=== PATIENT | male | born 1985 | race Two or more races ===

== ENCOUNTER 2019-02-23 21:19 | Emergency (ER) | payer OTHER ==
[~2019-02-23] VITALS: Ht 180.3 cm; Wt 79.0 kg
[~2019-02-23 21:19] MED LIST: CHLO25CA10 PO; FLO0.4C PO; MAGN400T28 PO; ONDA8TAB6 PO; PARO10TA23 PO
[2019-02-23] MEDS ORDERED: chlordiazePOXIDE 25mg capsule PO ONE (23:15)
[2019-02-23] MEDS ORDERED: CHLO25CA10 PO (23:17)
[2019-02-23 23:36] VITALS: BP 128/65
== END 2019-02-23 23:40 | disposition home or self-care (01) ==
LOC: ER 21:20
DX: F10.239 Alcohol dependence with withdrawal, unspecified (principal); Z90.89 Acquired absence of other organs; Z79.899 Other long term (current) drug therapy; Y90.9 Presence of alcohol in blood, level not specified
CPT/HCPCS: 99283

== ENCOUNTER 2019-07-28 02:18 | Emergency (ER) | payer OTHER ==
[~2019-07-28] VITALS: Ht 182.9 cm; Wt 84.1 kg
--- NOTE | 2019-07-28 02:28 | NUR ---
PT SISTER CAN BE REACHED AT [phone] JANAE SANDERSON
[2019-07-28 02:45] LABS: EOSINOPHILS % (AUTO) 0.8 % (0-6); HEMATOCRIT 42.5 % (42.0-52.0); HEMOGLOBIN 14.3 g/dl (14.0-17.9); LYMPHOCYTES # (AUTO) 2.3 X10'3 (1.1-4.8); LYMPHOCYTES % (AUTO) 51.8 % (21-51); MEAN CORPUSCULAR HEMOGLOBIN 31.5 PG (27.0-31.0); MEAN CORPUSCULAR HGB CONC 33.6 g/dL (33.0-36.5); MEAN CORPUSCULAR VOLUME 93.8 FL (78-98); MEAN PLATELET VOLUME 7.1 FL (7.4-10.4); MONOCYTES # (AUTO) 0.4 X10'3 (0-0.9); NEUTROPHILS # (AUTO) 1.6 X10'3 (1.8-7.7); NEUTROPHILS % (AUTO) 37.4 % (42-75); PLATELET COUNT 259 X10'3 (140-440); RED BLOOD COUNT 4.53 X10'6 (4.70-6.10); RED CELL DISTRIBUTION WIDTH 14.5 % (11.5-14.5); WHITE BLOOD COUNT 4.4 X10'3 (4.5-11.0)
[2019-07-28 02:58] LABS: ALANINE AMINOTRANSFERASE 36 U/L (12-78); ALKALINE PHOSPHATASE 107 IU/L (46-116); ANION GAP 7 (8-16); ASPARTATE AMINO TRANSFERASE 40 U/L (10-37); BILIRUBIN,TOTAL 0.6 MG/DL (0.1-1.0); BLOOD UREA NITROGEN 12 MG/DL (7-18); BUN/CREATININE RATIO 14.3 (5.4-32.0); CALCIUM 8.2 MG/DL (8.5-10.1); CHLORIDE 108 MMOL/L (99-107); CREATININE 0.84 MG/DL (0.60-1.10); GLUCOSE 100 MG/DL (70-104); POTASSIUM 3.8 MMOL/L (3.5-5.1); SODIUM 146 MMOL/L (135-145); TOTAL CARBON DIOXIDE 31.2 MMOL/L (24-32); TOTAL PROTEIN 7.9 G/DL (6.4-8.2); eGFR > 90 ML/MIN
[2019-07-28 03:07] LABS: MAGNESIUM 2.5 MG/DL (1.5-2.4)
[2019-07-28 03:08] LABS: ETHANOL 0.422 GM/DL (0.0-0.010)
[2019-07-28] MEDS ORDERED: normal saline 1000ML IV soln IVB ONE (03:20)
[2019-07-28 03:42] LABS: CLARITY,URINE CLEAR (Clear); COLOR,URINE YELLOW (Yellow); GLUCOSE, URINE NEGATIVE (Neg); KETONES,URINE NEGATIVE (Neg); LEUKOCYTE ESTERASE ,URINE NEGATIVE (Neg); NITRITES, URINE NEGATIVE (Neg); OCCULT BLOOD,URINE NEGATIVE (Neg); PROTEIN,URINE NEGATIVE (Neg); UROBILINOGEN,URINE 0.2 E.U/dL (0.2-1.0)
[2019-07-28 03:51] LABS: UA COLLECTION TYPE CLN CATCH MIDSTREAM
[2019-07-28 03:54] LABS: URINE AMPHETAMINE SCREEN NEGATIVE (Neg); URINE BARBITUATE SCREEN NEGATIVE (Neg); URINE BENZODIAZEPINES SCREEN NEGATIVE (Neg); URINE CANNABINOID SCREEN NEGATIVE (Neg); URINE COCAINE SCREEN NEGATIVE (Neg); URINE METHADONE SCREEN NEGATIVE (Neg); URINE OPIATE SCREEN NEGATIVE (Neg); URINE PHENCYCLIDINE SCREEN NEGATIVE (Neg)
[2019-07-28 04:43] LABS: TOTAL CELLS COUNTED 100
[2019-07-28 04:44] LABS: PLATELET ESTIMATE NORMAL
--- NOTE | 2019-07-28 06:55 | NUR ---
PT AWAKE, AMBULATED TO BR WITH STEADY GATE. PT GROGGY AND TIRED. OLINDA, TECH ESCORTED PT TO BR. VOIDED AND STOOL X1.
[2019-07-28] MEDS ORDERED: ondansetron/PF 4mg/2ml inj IV ONE (09:30)
--- NOTE | 2019-07-28 13:00 | NUR ---
PT'S SISTER CALLED, SAID PT HAS BEEN BINGE DRINKING FOR SOME TIME AND HAS BEEN [facility], A [facility] IN [place] AND OTHERS. WOULD LIKE REHAB FOR HIM
[2019-07-28] MEDS ORDERED: LORazepam 1 MG tablet PO ONE (13:45)
--- NOTE | 2019-07-28 15:36 | NUR ---
PACKET FAXED TO [facility]
--- NOTE | 2019-07-28 16:00 | NUR ---
Patient is awake and alert and in no distress. Patient denies withdrawal symptoms. [facility] but because of the Covid-19 it has been put off. Patient states he was not trying to kill himself. Patient states he has never been suicidal but he just had too much to drink. Continue to monitor.
[2019-07-28] MEDS ORDERED: ESCI10TA61 PO (18:47)
[2019-07-28] MEDS ORDERED: GABA-532 PO (18:47)
[2019-07-28] MEDS ORDERED: PRAZ1CAP5 PO (18:47)
--- NOTE | 2019-07-28 20:46 | NUR ---
Patient is talking with [facility].
[2019-07-28] MEDS ORDERED: prazosin 1mg capsule PO SCH (21:00)
[2019-07-28] MEDS: gabapentin 300mg capsule PO SCH (22:22)
--- NOTE | 2019-07-28 22:29 | NUR ---
Patient reports he is feeling shakey and sweating, possible ETOH withdrawl. I advised Dr. Herman and he will put in med orders.
[2019-07-28] MEDS ORDERED: chlordiazePOXIDE 25mg capsule PO ONE (22:30)
[2019-07-28] MEDS ORDERED: chlordiazePOXIDE 25mg capsule PO PRN (22:30)
[2019-07-29 05:50] VITALS: BP 113/76
[2019-07-29] MEDS ORDERED: ESCITALOPRAM OXALATE 5 MG TABLET PO SCH (08:00)
[2019-07-29] MEDS: gabapentin 300mg capsule PO SCH (08:00)
== END 2019-07-29 08:59 | disposition home or self-care (01) ==
LOC: ER 02:19
DX: R45.851 Suicidal ideations (principal); F10.129 Alcohol abuse with intoxication, unspecified; Z79.899 Other long term (current) drug therapy; Z90.89 Acquired absence of other organs; Y90.8 Blood alcohol level of 240 mg/100 ml or more
CPT/HCPCS: 36415; 80053; 80305; 80320; 81003; 83735; 84443; 85025; 96374; 99285; J2405; J7030

== ENCOUNTER 2019-08-05 23:58 | Emergency (ER) | payer OTHER, MEDICAID ==
[~2019-08-05] VITALS: Ht 185.4 cm; Wt 81.8 kg
[~2019-08-05 23:58] MED LIST changes: -CHLO25CA10 PO; +ESCI10TA61 PO; -FLO0.4C PO; +GABA-532 PO; -MAGN400T28 PO; -ONDA8TAB6 PO; -PARO10TA23 PO; +PRAZ1CAP5 PO
[2019-08-06] MEDS ORDERED: chlordiazePOXIDE 25mg capsule PO ONE (00:30)
[2019-08-06 00:46] LABS: BASOPHILS # (AUTO) 0.1 X10'3 (0-0.2); BASOPHILS % (AUTO) 1.3 % (0-1); EOSINOPHILS % (AUTO) 0.9 % (0-6); HEMOGLOBIN 13.8 g/dl (14.0-17.9); LYMPHOCYTES # (AUTO) 2.6 X10'3 (1.1-4.8); MEAN CORPUSCULAR HEMOGLOBIN 31.9 PG (27.0-31.0); MEAN CORPUSCULAR HGB CONC 33.6 g/dL (33.0-36.5); MEAN PLATELET VOLUME 7.6 FL (7.4-10.4); MONOCYTES # (AUTO) 0.5 X10'3 (0-0.9); MONOCYTES % (AUTO) 9.7 % (2-12); NEUTROPHILS # (AUTO) 1.8 X10'3 (1.8-7.7); NEUTROPHILS % (AUTO) 36.1 % (42-75); PLATELET COUNT 257 X10'3 (140-440); RED BLOOD COUNT 4.32 X10'6 (4.70-6.10); RED CELL DISTRIBUTION WIDTH 15.8 % (11.5-14.5)
[2019-08-06 00:59] LABS: ALANINE AMINOTRANSFERASE 30 U/L (12-78); ALBUMIN 4.1 G/DL (3.4-5.0); ALBUMIN/GLOBULIN RATIO 1.1 (1.1-1.5); ALKALINE PHOSPHATASE 108 IU/L (46-116); ANION GAP 9 (8-16); ASPARTATE AMINO TRANSFERASE 39 U/L (10-37); BILIRUBIN,TOTAL 0.7 MG/DL (0.1-1.0); BLOOD UREA NITROGEN 15 MG/DL (7-18); BUN/CREATININE RATIO 20.5 (5.4-32.0); CALCIUM 8.8 MG/DL (8.5-10.1); CHLORIDE 105 MMOL/L (99-107); CREATININE 0.73 MG/DL (0.60-1.10); GLUCOSE 101 MG/DL (70-104); POTASSIUM 3.8 MMOL/L (3.5-5.1); SODIUM 143 MMOL/L (135-145); TOTAL CARBON DIOXIDE 28.9 MMOL/L (24-32); TOTAL PROTEIN 7.9 G/DL (6.4-8.2); eGFR > 90 ML/MIN
[2019-08-06 01:05] LABS: PLATELET ESTIMATE NORMAL; TOTAL CELLS COUNTED 100
[2019-08-06 01:06] LABS: ETHANOL 0.316 GM/DL (0.0-0.010)
[2019-08-06] MEDS ORDERED: ONDA4TAB6 PO (01:10)
[2019-08-06] MEDS ORDERED: CLON-529 PO (01:10)
[2019-08-06] MEDS ORDERED: CHLO25CA10 PO (01:10)
[2019-08-06 01:16] VITALS: BP 128/90
== END 2019-08-06 01:19 | disposition home or self-care (01) ==
LOC: ER 23:59
DX: F10.230 Alcohol dependence with withdrawal, uncomplicated (principal); Z90.89 Acquired absence of other organs; Z79.899 Other long term (current) drug therapy
CPT/HCPCS: 36415; 80053; 80320; 85025; 99283

== ENCOUNTER 2019-08-12 08:37 | Emergency (ER) | payer MEDICAID, OTHER ==
[~2019-08-12] VITALS: Ht 182.9 cm; Wt 81.8 kg
[~2019-08-12 08:37] MED LIST changes: +CHLO25CA10 PO; +CLON-529 PO; +ONDA4TAB6 PO
[2019-08-12 09:30] LABS: BASOPHILS % (AUTO) 0.9 % (0-1); EOSINOPHILS # (AUTO) 0.1 X10'3 (0-0.9); EOSINOPHILS % (AUTO) 1.5 % (0-6); HEMATOCRIT 42.2 % (42.0-52.0); HEMOGLOBIN 14.1 g/dl (14.0-17.9); LYMPHOCYTES # (AUTO) 2.1 X10'3 (1.1-4.8); MEAN CORPUSCULAR HGB CONC 33.3 g/dL (33.0-36.5); MEAN CORPUSCULAR VOLUME 95.9 FL (78-98); MEAN PLATELET VOLUME 7.9 FL (7.4-10.4); MONOCYTES # (AUTO) 0.4 X10'3 (0-0.9); MONOCYTES % (AUTO) 7.7 % (2-12); NEUTROPHILS # (AUTO) 2.4 X10'3 (1.8-7.7); NEUTROPHILS % (AUTO) 47.9 % (42-75); PLATELET COUNT 249 X10'3 (140-440); RED CELL DISTRIBUTION WIDTH 16.2 % (11.5-14.5)
[2019-08-12 09:46] LABS: URINE AMPHETAMINE SCREEN NEGATIVE (Neg); URINE BARBITUATE SCREEN NEGATIVE (Neg); URINE BENZODIAZEPINES SCREEN POSITIVE (Neg); URINE CANNABINOID SCREEN NEGATIVE (Neg); URINE COCAINE SCREEN NEGATIVE (Neg); URINE METHADONE SCREEN NEGATIVE (Neg); URINE OPIATE SCREEN NEGATIVE (Neg); URINE PHENCYCLIDINE SCREEN NEGATIVE (Neg)
[2019-08-12 09:50] LABS: ALANINE AMINOTRANSFERASE 30 U/L (12-78); ALBUMIN 4.1 G/DL (3.4-5.0); ALBUMIN/GLOBULIN RATIO 1.1 (1.1-1.5); ALKALINE PHOSPHATASE 89 IU/L (46-116); ANION GAP 11 (8-16); ASPARTATE AMINO TRANSFERASE 25 U/L (10-37); BILIRUBIN,TOTAL 0.5 MG/DL (0.1-1.0); BLOOD UREA NITROGEN 16 MG/DL (7-18); BUN/CREATININE RATIO 17.2 (5.4-32.0); CALCIUM 8.6 MG/DL (8.5-10.1); CHLORIDE 107 MMOL/L (99-107); CREATININE 0.93 MG/DL (0.60-1.10); GLUCOSE 91 MG/DL (70-104); POTASSIUM 3.9 MMOL/L (3.5-5.1); SODIUM 146 MMOL/L (135-145); TOTAL CARBON DIOXIDE 28.5 MMOL/L (24-32); TOTAL PROTEIN 7.9 G/DL (6.4-8.2); eGFR > 90 ML/MIN
[2019-08-12 09:55] LABS: ETHANOL 0.335 GM/DL (0.0-0.010)
[2019-08-12] MEDS ORDERED: normal saline 1000ML IV soln IVB ONE (10:00)
[2019-08-12] MEDS ORDERED: LORazepam 1 MG tablet PO ONE (10:00)
--- NOTE | 2019-08-12 10:45 | NUR ---
Ativan held as pt intoxicated and is sleepy, provider Barbara HOFFMAN updated and aware, pt to receive when more awake.
--- NOTE | 2019-08-12 12:38 | NUR ---
Lunch relief for Primary Nurse. Pt is resting with even and unlabored respirations. Pt has a sitter at bedside.
--- NOTE | 2019-08-12 15:23 | NUR ---
Patient transferred to overflow bed 27. Pt. states that he was intoxicated and started cutting on his left forearm. [facility]. Pt. states that he has flashbacks from war in [place].
--- NOTE | 2019-08-12 17:58 | NUR ---
Pt. sleeping on right side. Pt.s girlfriend called, but patient did not wish to talk at this time. Sleeping at present.
--- NOTE | 2019-08-12 18:25 | NUR ---
Patient is sleeping quietly, low fowlers in bed, on his right side.
--- NOTE | 2019-08-12 19:03 | NUR ---
Patient is now awake and eating his dinner. The patient is oriented X4. Patient describes being an alcoholic and drinking two pints of vodka a day on a regular basis. Patient has superficial cuts on his left anterior wrist. Addendum: 08/12/19 at 2051 by CORKY Patient denies any S/I or H/I, or hallucinations. Hx of alcoholism. Patient is cooperative with staff. .
[2019-08-12] MEDS ORDERED: LORazepam 1 MG tablet PO PRN (21:45)
[2019-08-12] MEDS: gabapentin 300mg capsule PO SCH (21:53)
--- NOTE | 2019-08-12 21:55 | NUR ---
Patient is low fowlers position in bed. Mild anxiety, extremely cooperative with staff. Medication compliant. PO Ativan given 1mg for anxiety and to prevent potential ETOH withdrawl. Patient has an existing saline lock in his right forarm. This will be flushed and left in for the short term.
--- NOTE | 2019-08-12 23:39 | NUR ---
Patient is still awake. He is cooperative but not sleepy. This conventional underwriter spoke with YASMIN Gamboa. Nabeel ordered PO.
[2019-08-12] MEDS ORDERED: diphenhydrAMINE 25mg capsule PO ONE (23:40)
--- NOTE | 2019-08-13 06:37 | NUR ---
sleeping no signs of resp distress
--- NOTE | 2019-08-13 07:00 | NUR ---
sleeping no signs of resp distress sleeping on right side
[2019-08-13] MEDS ORDERED: ESCITALOPRAM OXALATE 5 MG TABLET PO SCH (08:00)
[2019-08-13] MEDS: gabapentin 300mg capsule PO SCH (08:21)
--- NOTE | 2019-08-13 08:23 | NUR ---
talked to [facility], being DC'd in restroom brushing teeth
--- NOTE | 2019-08-13 09:02 | NUR ---
Patient is readintg
[2019-08-13 09:41] VITALS: BP 126/83
== END 2019-08-13 09:44 ==
LOC: ER 08:37
DX: S40.812A Abrasion of left upper arm, initial encounter (principal); F32.9 Major depressive disorder, single episode, unspecified; F10.10 Alcohol abuse, uncomplicated; F41.9 Anxiety disorder, unspecified; Z79.899 Other long term (current) drug therapy; X78.9XXA Intentional self-harm by unspecified sharp object, initial encounter; Y93.89 Activity, other specified; Y92.89 Other specified places as the place of occurrence of the external cause; Y99.8 Other external cause status
CPT/HCPCS: 36415; 80053; 80305; 80320; 84443; 85025; 99285; J7030; Q0163; 99283

== ENCOUNTER 2019-08-16 13:56 | Emergency (ER) | payer OTHER, MEDICAID ==
[~2019-08-16] VITALS: Ht 182.9 cm; Wt 65.8 kg
[~2019-08-16 13:56] MED LIST changes: -CHLO25CA10 PO; -CLON-529 PO; -ONDA4TAB6 PO; -PRAZ1CAP5 PO
[2019-08-16 14:01] VITALS: BP 118/64
== END 2019-08-16 15:46 | disposition home or self-care (01) ==
LOC: ER 13:56
DX: F10.239 Alcohol dependence with withdrawal, unspecified (principal); F31.9 Bipolar disorder, unspecified; Z90.89 Acquired absence of other organs; Z79.899 Other long term (current) drug therapy; Y90.9 Presence of alcohol in blood, level not specified
CPT/HCPCS: 99281

== ENCOUNTER → 2019-11-11 | Emergency (ER) | payer MEDICAID, OTHER ==
[~2019-11-11] VITALS: Ht 182.9 cm; Wt 74.2 kg
[2019-11-11 21:44] VITALS: BP 125/85
== END | disposition home or self-care (01) ==
LOC: ER 21:15
DX: F10.20 Alcohol dependence, uncomplicated (principal); Z53.21 Procedure and treatment not carried out due to patient leaving prior to being seen by health care provider; Y90.9 Presence of alcohol in blood, level not specified

== ENCOUNTER 2019-11-12 15:04 | Emergency (ER) | payer OTHER ==
[~2019-11-12] VITALS: Ht 182.9 cm; Wt 79.5 kg
[2019-11-12] MEDS ORDERED: thiamine 100mg/ml 2ml inj. IV ONE (15:35)
[2019-11-12] MEDS ORDERED: metoclopramide 5 mg/ml inj IV ONE (15:35)
[2019-11-12] MEDS ORDERED: normal saline 1000ML IV soln IV ONE (15:35)
[2019-11-12] MEDS ORDERED: pantoprazole IV 80 MG in normal saline 100ml IV soln 100 ML IV ONE (15:35)
[2019-11-12] MEDS ORDERED: folic acid 1mg/0.2ml inj IV ONE (15:35)
[2019-11-12] MEDS ORDERED: pantoprazole 40 MG vial IV ONE (15:40)
[2019-11-12 15:57] VITALS: BP 117/71
[2019-11-12] MEDS ORDERED: piperacillin/tazo 3.375gm/50ml 50 ML IV ONE (16:00)
[2019-11-12 16:03] LABS: BASOPHILS % (AUTO) 0.4 % (0-1); EOSINOPHILS % (AUTO) 0 % (0-6); HEMATOCRIT 40.6 % (42.0-52.0); HEMOGLOBIN 13.4 g/dl (14.0-17.9); LYMPHOCYTES # (AUTO) 0.7 X10'3 (1.1-4.8); LYMPHOCYTES % (AUTO) 11.6 % (21-51); MEAN CORPUSCULAR HEMOGLOBIN 30.8 PG (27.0-31.0); MEAN CORPUSCULAR VOLUME 93.5 FL (78-98); MEAN PLATELET VOLUME 7.5 FL (7.4-10.4); MONOCYTES # (AUTO) 0.4 X10'3 (0-0.9); MONOCYTES % (AUTO) 6.3 % (2-12); NEUTROPHILS # (AUTO) 4.9 X10'3 (1.8-7.7); NEUTROPHILS % (AUTO) 81.7 % (42-75); PLATELET COUNT 223 X10'3 (140-440); RED BLOOD COUNT 4.34 X10'6 (4.70-6.10); RED CELL DISTRIBUTION WIDTH 13.8 % (11.5-14.5)
--- NOTE | 2019-11-12 16:08 | NUR ---
PT OUT TO CT VIA WHEELCHAIR WITH ASSISTED LIVING DIRECTOR
--- NOTE | 2019-11-12 16:14 | NUR ---
PT RETURNS FROM CT
[2019-11-12 16:39] LABS: CLARITY,URINE CLEAR (Clear); COLOR,URINE YELLOW (Yellow); GLUCOSE, URINE NEGATIVE (Neg); KETONES,URINE 15 mg/dl (Neg); LEUKOCYTE ESTERASE ,URINE NEGATIVE (Neg); NITRITES, URINE NEGATIVE (Neg); OCCULT BLOOD,URINE TRACE-INTACT (Neg); PH,URINE 6.5 (4.8-8.0); PROTEIN,URINE 100 mg/dl (Neg)
[2019-11-12 16:44] LABS: UA COLLECTION TYPE URINAL
[2019-11-12 16:47] LABS: ALANINE AMINOTRANSFERASE 33 U/L (12-78); ALBUMIN/GLOBULIN RATIO 1.3 (1.1-1.5); ALKALINE PHOSPHATASE 74 IU/L (46-116); ANION GAP 13 (8-16); ASPARTATE AMINO TRANSFERASE 31 U/L (10-37); BILIRUBIN,TOTAL 0.8 MG/DL (0.1-1.0); BLOOD UREA NITROGEN 15 MG/DL (7-18); CHLORIDE 106 MMOL/L (99-107); CREATININE 0.88 MG/DL (0.60-1.10); GLUCOSE 84 MG/DL (70-104); POTASSIUM 4.1 MMOL/L (3.5-5.1); SODIUM 142 MMOL/L (135-145); TOTAL CARBON DIOXIDE 22.9 MMOL/L (24-32); TOTAL PROTEIN 7.2 G/DL (6.4-8.2); eGFR > 90 ML/MIN
[2019-11-12 16:47] LABS: SQUAMOUS EPITHELIAL CELL,UR FEW /LPF (FEW)
[2019-11-12 16:48] LABS: BACTERIA,URINE FEW /HPF (Neg); MUCUS STRANDS MANY /LPF (Neg); RBC,URINE 0-2 /HPF (0-2); WBC,URINE 0-4 /HPF (0-4)
--- NOTE | 2019-11-12 16:48 | NUR ---
went in room to give pt meds but pt was not in there ,er brittney lord informed pt lft the er.
[2019-11-12] MEDS ORDERED: pantoprazole 40MG/NS 100ML BAG 100 ML IV SCH (16:55)
--- NOTE | 2019-11-12 17:00 | NUR ---
called soledad spoke to camilo notified pt lft er with iv also given the information what pt was wearing .as per braxton they will contact [facility] and will contact us marino grullon notified.
== END 2019-11-12 17:35 | disposition left against medical advice (07) ==
LOC: ER 15:05
DX: K29.21 Alcoholic gastritis with bleeding (principal); K92.2 Gastrointestinal hemorrhage, unspecified; R11.10 Vomiting, unspecified; F41.9 Anxiety disorder, unspecified; F32.9 Major depressive disorder, single episode, unspecified; Z72.89 Other problems related to lifestyle; Z86.69 Personal history of other diseases of the nervous system and sense organs; Z79.899 Other long term (current) drug therapy; Z90.89 Acquired absence of other organs
CPT/HCPCS: 36415; 71045; 74176; 80053; 81001; 84145; 85025; 85610; 86885; 86900; 86901; 93005; 96361; 96374; 96375; 99285; C9113; J2765; J3411; J7030

== ENCOUNTER 2020-01-18 12:47 | Emergency (ER) | payer OTHER ==
[~2020-01-18] VITALS: Ht 182.9 cm; Wt 81.8 kg
[2020-01-18] MEDS ORDERED: carbidoba-levodopa 25-100mg tablet PO SCH (13:10)
[2020-01-18] MEDS ORDERED: carbidoba-levodopa 25-100mg tablet PO ONE (13:10)
[2020-01-18 14:48] VITALS: BP 120/68
== END 2020-01-18 14:50 | disposition home or self-care (01) ==
LOC: ER 12:48
DX: F10.129 Alcohol abuse with intoxication, unspecified (principal); Y90.0 Blood alcohol level of less than 20 mg/100 ml; F41.9 Anxiety disorder, unspecified; F32.9 Major depressive disorder, single episode, unspecified; Z86.69 Personal history of other diseases of the nervous system and sense organs; Z90.89 Acquired absence of other organs; Z79.899 Other long term (current) drug therapy
CPT/HCPCS: 70450; 82948; 99284

== ENCOUNTER 2020-01-28 22:10 | Emergency (ER) | payer OTHER ==
[~2020-01-28] VITALS: Ht 182.9 cm; Wt 81.8 kg
--- NOTE | 2020-01-28 23:22 | NUR ---
He was trying to crawl out of bed. He said he had to have a bm. Walked him to the bathroom, once in the BR he just kept grabbing the urinal. I asked him to sit down on the toilet but he just wouldn't, again grabbing for the urinal. I escorted him back to his bed, put up the side rail. He is just laying there.
--- NOTE | 2020-01-28 23:25 | NUR ---
found him again out of bed. I want to help him because he is so unsteady. He said he cannot pee with me in the room. I said that he is just too unsteady. I offered a male to assist. He said he would just pee the bed. Side rail up.
--- NOTE | 2020-01-29 00:52 | NUR ---
INFORMED ME THAT SHE DID GET AHOLD OF HIS MOTHER AND THAT SHE WILL BE HERE IN ABOUT AN HOUR OR SO.
[2020-01-29 01:35] VITALS: BP 153/87
== END 2020-01-29 01:39 | disposition home or self-care (01) ==
LOC: ER 22:10
DX: F10.129 Alcohol abuse with intoxication, unspecified (principal); F41.9 Anxiety disorder, unspecified; F32.9 Major depressive disorder, single episode, unspecified; Z86.69 Personal history of other diseases of the nervous system and sense organs; Z90.89 Acquired absence of other organs; Z79.899 Other long term (current) drug therapy; Y90.0 Blood alcohol level of less than 20 mg/100 ml
CPT/HCPCS: 82948; 99284

== ENCOUNTER 2020-04-05 11:20 | Emergency (ER) | payer OTHER ==
[~2020-04-05] VITALS: Ht 180.3 cm; Wt 84.1 kg
[2020-04-05 12:43] LABS: BASOPHILS % (AUTO) 0.5 % (0-1); EOSINOPHILS % (AUTO) 1.1 % (0-6); HEMATOCRIT 45.9 % (42.0-52.0); HEMOGLOBIN 15.4 g/dl (14.0-17.9); LYMPHOCYTES # (AUTO) 2.2 X10'3 (1.1-4.8); LYMPHOCYTES % (AUTO) 53.6 % (21-51); MEAN CORPUSCULAR HGB CONC 33.5 g/dL (33.0-36.5); MEAN CORPUSCULAR VOLUME 95.5 FL (78-98); MEAN PLATELET VOLUME 7.5 FL (7.4-10.4); MONOCYTES # (AUTO) 0.1 X10'3 (0-0.9); MONOCYTES % (AUTO) 3.7 % (2-12); NEUTROPHILS # (AUTO) 1.7 X10'3 (1.8-7.7); NEUTROPHILS % (AUTO) 41.1 % (42-75); PLATELET COUNT 208 X10'3 (140-440); RED BLOOD COUNT 4.81 X10'6 (4.70-6.10); RED CELL DISTRIBUTION WIDTH 13.5 % (11.5-14.5)
[2020-04-05 12:56] LABS: ALANINE AMINOTRANSFERASE 42 U/L (12-78); ALBUMIN 4.1 G/DL (3.4-5.0); ALBUMIN/GLOBULIN RATIO 1.1 (1.1-1.5); ALKALINE PHOSPHATASE 88 IU/L (46-116); ANION GAP 14 (8-16); ASPARTATE AMINO TRANSFERASE 33 U/L (10-37); BILIRUBIN,TOTAL 0.6 MG/DL (0.1-1.0); BLOOD UREA NITROGEN 15 MG/DL (7-18); CALCIUM 8.3 MG/DL (8.5-10.1); CHLORIDE 105 MMOL/L (99-107); CREATININE 0.88 MG/DL (0.60-1.10); GLUCOSE 87 MG/DL (70-104); POTASSIUM 3.9 MMOL/L (3.5-5.1); SODIUM 146 MMOL/L (135-145); TOTAL CARBON DIOXIDE 27.3 MMOL/L (24-32); eGFR > 90 ML/MIN
[2020-04-05 13:21] LABS: TOTAL CELLS COUNTED 100
[2020-04-05 13:22] LABS: PLATELET ESTIMATE NORMAL
[2020-04-05 13:23] LABS: ELLIPTOCYTES FEW; SMUDGE CELLS FEW; STOMATOCYTES FEW; TEAR DROP CELLS FEW
--- NOTE | 2020-04-05 13:40 | NUR ---
PO CHALLENGE PERFORMED. OUTCME NORMAL, NO N/V OR DIFFICULTY SWALLOWING. PA WU INFORMED
[2020-04-05] MEDS ORDERED: GABA300C PO (13:50)
[2020-04-05 13:59] VITALS: BP 117/84
== END 2020-04-05 14:01 | disposition home or self-care (01) ==
LOC: ER 11:21
DX: F10.129 Alcohol abuse with intoxication, unspecified (principal); F41.9 Anxiety disorder, unspecified; F32.9 Major depressive disorder, single episode, unspecified; Z86.69 Personal history of other diseases of the nervous system and sense organs; Z90.89 Acquired absence of other organs; Z72.89 Other problems related to lifestyle; Z79.899 Other long term (current) drug therapy; Y90.9 Presence of alcohol in blood, level not specified
CPT/HCPCS: 80053; 85007; 85025; 99283

== ENCOUNTER 2020-06-06 01:10 | Emergency (ER) | payer OTHER ==
[~2020-06-06] VITALS: Ht 182.9 cm; Wt 79.0 kg
[~2020-06-06 01:10] MED LIST changes: +ESCI-8 PO; -ESCI10TA61 PO; +GABA300C PO
[2020-06-06] MEDS ORDERED: normal saline 1000ML IV soln IVB ONE (01:20)
[2020-06-06 01:46] LABS: BASOPHILS % (AUTO) 0.6 % (0-1); EOSINOPHILS % (AUTO) 0.7 % (0-6); HEMATOCRIT 39.1 % (42.0-52.0); HEMOGLOBIN 13.4 g/dl (14.0-17.9); LYMPHOCYTES # (AUTO) 1.8 X10'3 (1.1-4.8); LYMPHOCYTES % (AUTO) 56.5 % (21-51); MEAN CORPUSCULAR HEMOGLOBIN 32.9 PG (27.0-31.0); MEAN CORPUSCULAR HGB CONC 34.3 g/dL (33.0-36.5); MEAN CORPUSCULAR VOLUME 96.1 FL (78-98); MEAN PLATELET VOLUME 8.1 FL (7.4-10.4); MONOCYTES # (AUTO) 0.3 X10'3 (0-0.9); MONOCYTES % (AUTO) 8.1 % (2-12); NEUTROPHILS # (AUTO) 1.1 X10'3 (1.8-7.7); NEUTROPHILS % (AUTO) 34.1 % (42-75); PLATELET COUNT 145 X10'3 (140-440); RED BLOOD COUNT 4.06 X10'6 (4.70-6.10); RED CELL DISTRIBUTION WIDTH 15.7 % (11.5-14.5); WHITE BLOOD COUNT 3.2 X10'3 (4.5-11.0)
[2020-06-06 01:47] LABS: ALANINE AMINOTRANSFERASE 50 U/L (12-78); ALBUMIN 3.9 G/DL (3.4-5.0); ALKALINE PHOSPHATASE 105 IU/L (46-116); ANION GAP 5 (8-16); ASPARTATE AMINO TRANSFERASE 87 U/L (10-37); BILIRUBIN,TOTAL 0.7 MG/DL (0.1-1.0); BLOOD UREA NITROGEN 11 MG/DL (7-18); BUN/CREATININE RATIO 13.9 (5.4-32.0); CALCIUM 8.2 MG/DL (8.5-10.1); CHLORIDE 105 MMOL/L (99-107); CREATININE 0.79 MG/DL (0.60-1.10); GLUCOSE 106 MG/DL (70-104); MAGNESIUM 2.3 MG/DL (1.5-2.4); POTASSIUM 3.3 MMOL/L (3.5-5.1); SODIUM 143 MMOL/L (135-145); TOTAL CARBON DIOXIDE 32.7 MMOL/L (24-32); TOTAL PROTEIN 7.7 G/DL (6.4-8.2); eGFR > 90 ML/MIN
[2020-06-06 01:52] LABS: ETHANOL 0.558 GM/DL (0.0-0.010)
[2020-06-06 02:34] VITALS: BP 104/65
[2020-06-06] MEDS ORDERED: LORA-269 PO (05:59)
--- NOTE | 2020-06-06 06:28 | NUR ---
HOME MEDS RETURNED TO PATIENT
== END 2020-06-06 06:41 | disposition home or self-care (01) ==
LOC: ER 01:11
DX: S09.90XA Unspecified injury of head, initial encounter (principal); F10.129 Alcohol abuse with intoxication, unspecified; E87.6 Hypokalemia; F41.9 Anxiety disorder, unspecified; F32.9 Major depressive disorder, single episode, unspecified; Z86.69 Personal history of other diseases of the nervous system and sense organs; Z90.89 Acquired absence of other organs; Z72.89 Other problems related to lifestyle; Z79.899 Other long term (current) drug therapy; W19.XXXA Unspecified fall, initial encounter; Y93.89 Activity, other specified; Y92.89 Other specified places as the place of occurrence of the external cause; Y99.8 Other external cause status; Y90.0 Blood alcohol level of less than 20 mg/100 ml
CPT/HCPCS: 70450; 71045; 80053; 80320; 83735; 85025; 99285; J7030; 96360

== ENCOUNTER 2020-11-30 18:58 | Inpatient (IN) | payer OTHER ==
[~2020-11-30] VITALS: Ht 177.8 cm; Wt 75.0 kg
[~2020-11-30 18:58] MED LIST changes: +LORA-269 PO
[2020-11-30] MEDS ORDERED: normal saline 1000ML IV soln IV ONE (19:05)
[2020-11-30] MEDS ORDERED: folic acid 1mg/0.2ml inj IV ONE (19:05)
[2020-11-30] MEDS ORDERED: thiamine 100mg/ml 2ml inj. IV ONE (19:05)
[2020-11-30 19:22] LABS: BASOPHILS % (AUTO) 0.3 % (0-1); EOSINOPHILS % (AUTO) 0 % (0-6); HEMOGLOBIN 14.8 g/dl (14.0-17.9); LYMPHOCYTES # (AUTO) 1.7 X10'3 (1.1-4.8); LYMPHOCYTES % (AUTO) 22.4 % (21-51); MEAN CORPUSCULAR HEMOGLOBIN 31.4 PG (27.0-31.0); MEAN CORPUSCULAR HGB CONC 33.6 g/dL (33.0-36.5); MEAN CORPUSCULAR VOLUME 93.7 FL (78-98); MEAN PLATELET VOLUME 7.7 FL (7.4-10.4); MONOCYTES # (AUTO) 0.5 X10'3 (0-0.9); MONOCYTES % (AUTO) 6.4 % (2-12); NEUTROPHILS # (AUTO) 5.3 X10'3 (1.8-7.7); NEUTROPHILS % (AUTO) 70.9 % (42-75); PLATELET COUNT 246 X10'3 (140-440); RED CELL DISTRIBUTION WIDTH 12.6 % (11.5-14.5); WHITE BLOOD COUNT 7.5 X10'3 (4.5-11.0)
[2020-11-30 19:37] LABS: ALANINE AMINOTRANSFERASE 101 U/L (12-78); ALBUMIN 4.3 G/DL (3.4-5.0); ALBUMIN/GLOBULIN RATIO 1.1 (1.1-1.5); ALKALINE PHOSPHATASE 91 IU/L (46-116); ANION GAP 9 (8-16); ASPARTATE AMINO TRANSFERASE 91 U/L (10-37); BILIRUBIN,TOTAL 1.6 MG/DL (0.1-1.0); BLOOD UREA NITROGEN 14 MG/DL (7-18); BUN/CREATININE RATIO 17.9 (5.4-32.0); CALCIUM 8.5 MG/DL (8.5-10.1); CHLORIDE 104 MMOL/L (99-107); CREATININE 0.78 MG/DL (0.60-1.10); GLUCOSE 113 MG/DL (70-104); POTASSIUM 3.7 MMOL/L (3.5-5.1); SODIUM 140 MMOL/L (135-145); TOTAL CARBON DIOXIDE 27.1 MMOL/L (24-32); TOTAL PROTEIN 8.2 G/DL (6.4-8.2); eGFR > 90 ML/MIN
[2020-11-30 19:38] LABS: MAGNESIUM 2.3 MG/DL (1.5-2.4)
[2020-11-30 19:51] LABS: ETHANOL 0.374 GM/DL (0.0-0.010); LIPASE 1938 U/L (73-393)
[2020-11-30] MEDS ORDERED: famotidine/PF 10 mg/ml inj IV ONE (20:10)
[2020-11-30] MEDS ORDERED: ketorolac trometh. 30mg/ml inj. IV ONE (20:10)
[2020-11-30] MEDS ORDERED: ondansetron/PF 4mg/2ml inj IV ONE (21:10)
[2020-11-30 21:31] LABS: CLARITY,URINE CLEAR (Clear); COLOR,URINE YELLOW (Yellow); GLUCOSE, URINE NEGATIVE (Neg); KETONES,URINE NEGATIVE (Neg); LEUKOCYTE ESTERASE ,URINE NEGATIVE (Neg); NITRITES, URINE NEGATIVE (Neg); OCCULT BLOOD,URINE TRACE-INTACT (Neg); PROTEIN,URINE NEGATIVE (Neg); UROBILINOGEN,URINE 0.2 E.U/dL (0.2-1.0)
[2020-11-30 21:38] LABS: UA COLLECTION TYPE VOIDED
[2020-11-30 21:40] LABS: BACTERIA,URINE NONE SEEN /HPF (Neg); RBC,URINE 0-2 /HPF (0-2); SQUAMOUS EPITHELIAL CELL,UR NONE SEEN /LPF (FEW); WBC,URINE 0-4 /HPF (0-4)
[2020-11-30 21:44] LABS: URINE AMPHETAMINE SCREEN NEGATIVE (Neg); URINE BARBITUATE SCREEN NEGATIVE (Neg); URINE BENZODIAZEPINES SCREEN NEGATIVE (Neg); URINE CANNABINOID SCREEN NEGATIVE (Neg); URINE COCAINE SCREEN NEGATIVE (Neg); URINE METHADONE SCREEN NEGATIVE (Neg); URINE OPIATE SCREEN NEGATIVE (Neg); URINE PHENCYCLIDINE SCREEN NEGATIVE (Neg)
--- NOTE | 2020-11-30 21:51 | NUR ---
FAXED MH PACKET TO [facility]
--- NOTE | 2020-11-30 22:03 | NUR ---
Pt no longer nauseaus. reorts hunger. given snacks.
[2020-12-01] MEDS ORDERED: LORazepam 2 mg/ml vial IV ONE (00:45)
[2020-12-01] MEDS ORDERED: BUPR150T8 PO (01:13)
[2020-12-01] MEDS ORDERED: GABA600T13 PO (01:14)
[2020-12-01] MEDS ORDERED: PARO30TA73 PO (01:14)
[2020-12-01] MEDS ORDERED: ondansetron/PF 4mg/2ml inj IV ONE (01:20)
[2020-12-01] MEDS ORDERED: potassium Cl 40MEQ/1/2NS 520ml 520 ML IV PRN ×2 (03:00)
[2020-12-01] MEDS ORDERED: magnesium 2GM in 50ml NS 50 ML IV PRN (03:00)
[2020-12-01] MEDS ORDERED: potassium Cl 20 mEq SR tablet PO PRN ×2 (03:00)
[2020-12-01] MEDS ORDERED: mag hydrox/Alum hydrox/simeth 30ml oral suspension PO PRN (03:00)
[2020-12-01] MEDS ORDERED: magnesium hydroxide 30ml (MOM) UD suspension PO PRN (03:00)
[2020-12-01] MEDS ORDERED: haloperidol 5mg tablet PO PRN (03:00)
[2020-12-01] MEDS ORDERED: acetaminophen 325mg tablet PO PRN (03:00)
[2020-12-01] MEDS ORDERED: haloperidol lactate 5mg/ml inj IM PRN (03:00)
[2020-12-01] MEDS ORDERED: magnesium 4gm in 100ml NS 100 ML IV PRN (03:00)
[2020-12-01] MEDS ORDERED: ondansetron/PF 4mg/2ml inj IV PRN (03:00)
[2020-12-01] MEDS: normal saline 1000ml 1,000 ML IV SCH ×3 (03:00→17:47)
[2020-12-01] MEDS: multivitamins, therapeutics tablet PO SCH (07:58)
[2020-12-01] MEDS: folic acid 1mg tablet PO SCH (07:59)
[2020-12-01] MEDS: thiamine 100mg tablet PO SCH (07:59)
[2020-12-01] MEDS: gabapentin 300mg capsule PO SCH ×2 (07:59→15:58)
[2020-12-01] MEDS: docusate sod 100mg capsule PO SCH ×2 (08:00→19:31)
[2020-12-01] MEDS: K and/or MAG REPLACEMENT MC SCH ×2 (08:00→19:30)
[2020-12-01 11:00] VITALS: BP 122/68
[2020-12-01] MEDS: LORazepam 2 mg/ml vial IV PRN ×2 (14:33→21:31)
[2020-12-01] MEDS: PARoxetine 10mg tablet PO SCH (15:58)
[2020-12-01 19:00] VITALS: BP 124/69
[2020-12-02] VITALS: BP 135/84
[2020-12-02] MEDS: gabapentin 300mg capsule PO SCH ×2 (00:38→08:43)
[2020-12-02] MEDS: normal saline 1000ml 1,000 ML IV SCH (04:14)
--- NOTE | 2020-12-02 06:53 | NUR ---
Patient in room [facility]. I have received report from ROSALES Henderson and had the opportunity to ask questions and assume patient care.
[2020-12-02 07:30] VITALS: BP 117/71
[2020-12-02 07:55] LABS: BASOPHILS % (AUTO) 0.5 % (0-1); EOSINOPHILS # (AUTO) 0.1 X10'3 (0-0.9); EOSINOPHILS % (AUTO) 2.8 % (0-6); HEMATOCRIT 40.3 % (42.0-52.0); HEMOGLOBIN 13.4 g/dl (14.0-17.9); LYMPHOCYTES # (AUTO) 1.6 X10'3 (1.1-4.8); LYMPHOCYTES % (AUTO) 32.5 % (21-51); MEAN CORPUSCULAR HEMOGLOBIN 30.7 PG (27.0-31.0); MEAN CORPUSCULAR HGB CONC 33.3 g/dL (33.0-36.5); MEAN CORPUSCULAR VOLUME 92.1 FL (78-98); MEAN PLATELET VOLUME 8.6 FL (7.4-10.4); MONOCYTES # (AUTO) 0.3 X10'3 (0-0.9); MONOCYTES % (AUTO) 6.9 % (2-12); NEUTROPHILS # (AUTO) 2.8 X10'3 (1.8-7.7); NEUTROPHILS % (AUTO) 57.3 % (42-75); PLATELET COUNT 178 X10'3 (140-440); RED BLOOD COUNT 4.38 X10'6 (4.70-6.10); RED CELL DISTRIBUTION WIDTH 12.6 % (11.5-14.5); WHITE BLOOD COUNT 4.9 X10'3 (4.5-11.0)
[2020-12-02] MEDS: K and/or MAG REPLACEMENT MC SCH (08:00)
[2020-12-02 08:30] LABS: ALANINE AMINOTRANSFERASE 99 U/L (12-78); ALBUMIN 3.3 G/DL (3.4-5.0); ALBUMIN/GLOBULIN RATIO 1.1 (1.1-1.5); ALKALINE PHOSPHATASE 104 IU/L (46-116); AMYLASE 106 U/L (25-115); ANION GAP 9 (8-16); ASPARTATE AMINO TRANSFERASE 80 U/L (10-37); BILIRUBIN,TOTAL 2.4 MG/DL (0.1-1.0); BLOOD UREA NITROGEN 11 MG/DL (7-18); BUN/CREATININE RATIO 16.7 (5.4-32.0); CALCIUM 7.9 MG/DL (8.5-10.1); CHLORIDE 108 MMOL/L (99-107); CREATININE 0.66 MG/DL (0.60-1.10); GLUCOSE 98 MG/DL (70-104); LIPASE 920 U/L (73-393); PHOSPHORUS 4.5 MG/DL (2.3-4.5); POTASSIUM 3.5 MMOL/L (3.5-5.1); SODIUM 143 MMOL/L (135-145); TOTAL CARBON DIOXIDE 25.7 MMOL/L (24-32); TOTAL PROTEIN 6.4 G/DL (6.4-8.2); eGFR > 90 ML/MIN
[2020-12-02] MEDS: docusate sod 100mg capsule PO SCH (08:43)
[2020-12-02] MEDS: PARoxetine 10mg tablet PO SCH (08:43)
[2020-12-02] MEDS: thiamine 100mg tablet PO SCH (08:43)
[2020-12-02] MEDS: multivitamins, therapeutics tablet PO SCH (08:43)
[2020-12-02] MEDS: folic acid 1mg tablet PO SCH (08:43)
[2020-12-02] MEDS ORDERED: MULT-25 PO (09:52)
[2020-12-02 11:00] VITALS: BP 121/69
--- NOTE | 2020-12-02 14:20 | NUR ---
Pt discharged to home, with all belongings, in private vehicle accompanied by parents. Discharge instructions and medications reviewed. No new prescriptions ordered. Pt instructed to follow up with PCP and to abstain from alcohol completely. Pt stated understanding and willingness to comply with discharge instructions. IV DC'd, cannula intact. Pt escorted to front lobby by primary RN.
[2020-12-03] MEDS ORDERED: LORazepam 2 mg/ml vial IV PRN (03:00)
[2020-12-03] MEDS ORDERED: LORazepam 1 MG tablet PO PRN (03:00)
[2020-12-05] MEDS ORDERED: LORazepam 1 MG tablet PO PRN (03:00)
[2020-12-05] MEDS ORDERED: LORazepam 2 mg/ml vial IV PRN (03:00)
== END 2020-12-02 15:02 | disposition home or self-care (01) | DRG 440 ==
LOC: ER 18:58 → ED HOLD 12-01 03:04 → SUR 3N 12-01 07:05
PROVIDERS: ADMIT Family Medicine; ATTEND Family Medicine
DX: K85.20 Alcohol induced acute pancreatitis without necrosis or infection (principal); F10.20 Alcohol dependence, uncomplicated; R74.01 Elevation of levels of liver transaminase levels; F32.9 Major depressive disorder, single episode, unspecified; F43.10 Post-traumatic stress disorder, unspecified; F41.9 Anxiety disorder, unspecified; Z79.899 Other long term (current) drug therapy
CPT/HCPCS: 36415; 71045; 80053; 80305; 80320; 81001; 82150; 82948; 83690; 83735; 84100; 85025; 85610; 87081; 93005; 96374; 96375; 99285; G0378; J1885; J2060; J2405; J3411; J3490; J7030

== ENCOUNTER 2021-03-21 17:17 | Emergency (ER) | payer OTHER ==
[~2021-03-21] VITALS: Ht 182.9 cm; Wt 81.8 kg
[~2021-03-21 17:17] MED LIST changes: +BUPR150T8 PO; -ESCI-8 PO; -GABA-532 PO; -GABA300C PO; +GABA600T13 PO; -LORA-269 PO; +MULT-25 PO; +PARO30TA73 PO
[2021-03-21] MEDS ORDERED: LIDOcaine 4% (40 mg/ml) topical solution 50ml TP ONE (17:45)
[2021-03-21 19:30] VITALS: BP 147/106
[2021-03-21] MEDS ORDERED: AMOX-117 PO (19:49)
== END 2021-03-21 19:33 | disposition home or self-care (01) ==
LOC: ER 17:17
DX: R04.0 Epistaxis (principal); F41.9 Anxiety disorder, unspecified; F32.9 Major depressive disorder, single episode, unspecified; Z86.69 Personal history of other diseases of the nervous system and sense organs; Z90.89 Acquired absence of other organs; Z72.89 Other problems related to lifestyle; Z79.899 Other long term (current) drug therapy
CPT/HCPCS: 30901; 99284

== ENCOUNTER 2021-09-10 09:51 | Emergency (ER) | payer OTHER ==
[~2021-09-10] VITALS: Ht 180.3 cm; Wt 85.2 kg
[2021-09-10 09:58] VITALS: BP 115/67
[2021-09-10 10:47] LABS: ALANINE AMINOTRANSFERASE 41 U/L (12-78); ALBUMIN 4.2 G/DL (3.4-5.0); ALBUMIN/GLOBULIN RATIO 1.2 (1.1-1.5); ALKALINE PHOSPHATASE 82 IU/L (46-116); ANION GAP 8 (8-16); ASPARTATE AMINO TRANSFERASE 28 U/L (10-37); BILIRUBIN,TOTAL 0.4 MG/DL (0.1-1.0); BLOOD UREA NITROGEN 15 MG/DL (7-18); CALCIUM 8.3 MG/DL (8.5-10.1); CHLORIDE 106 MMOL/L (99-107); CREATININE 0.79 MG/DL (0.60-1.10); ETHANOL 0.294 GM/DL (0.0-0.010); GLUCOSE 104 MG/DL (70-104); MAGNESIUM 2.5 MG/DL (1.5-2.4); POTASSIUM 3.9 MMOL/L (3.5-5.1); SODIUM 144 MMOL/L (135-145); TOTAL CARBON DIOXIDE 30.4 MMOL/L (24-32); TOTAL PROTEIN 7.8 G/DL (6.4-8.2); eGFR > 90 ML/MIN
[2021-09-10 10:59] LABS: BASOPHILS % (AUTO) 0.6 % (0-1); EOSINOPHILS # (AUTO) 0.4 X10'3 (0-0.9); EOSINOPHILS % (AUTO) 8.5 % (0-6); HEMATOCRIT 39.5 % (42.0-52.0); HEMOGLOBIN 13.4 g/dl (14.0-17.9); LYMPHOCYTES # (AUTO) 2.6 X10'3 (1.1-4.8); LYMPHOCYTES % (AUTO) 54.9 % (21-51); MEAN CORPUSCULAR HEMOGLOBIN 31.1 PG (27.0-31.0); MEAN CORPUSCULAR HGB CONC 34.1 g/dL (33.0-36.5); MEAN CORPUSCULAR VOLUME 91.4 FL (78-98); MONOCYTES # (AUTO) 0.2 X10'3 (0-0.9); MONOCYTES % (AUTO) 5.1 % (2-12); NEUTROPHILS # (AUTO) 1.5 X10'3 (1.8-7.7); NEUTROPHILS % (AUTO) 30.9 % (42-75); PLATELET COUNT 294 X10'3 (140-440); RED BLOOD COUNT 4.32 X10'6 (4.70-6.10); RED CELL DISTRIBUTION WIDTH 13.9 % (11.5-14.5); WHITE BLOOD COUNT 4.8 X10'3 (4.5-11.0)
[2021-09-10 11:22] LABS: TOTAL CELLS COUNTED 100
[2021-09-10 11:25] LABS: PLATELET ESTIMATE NORMAL; STOMATOCYTES FEW
[2021-09-10] MEDS ORDERED: CHLO25CA10 PO (11:32)
== END 2021-09-10 12:12 | disposition home or self-care (01) ==
LOC: ER 09:52
DX: F10.139 Alcohol abuse with withdrawal, unspecified (principal); F41.9 Anxiety disorder, unspecified; F32.A Depression, unspecified; Z79.899 Other long term (current) drug therapy; Y90.8 Blood alcohol level of 240 mg/100 ml or more
CPT/HCPCS: 36415; 80053; 80320; 83735; 85007; 85025; 99283

== ENCOUNTER 2022-07-24 07:35 | Emergency (ER) | payer OTHER ==
[~2022-07-24] VITALS: Ht 180.3 cm; Wt 84.1 kg
[~2022-07-24 07:35] MED LIST changes: +CHLO25CA10 PO; -PARO30TA73 PO; +PARO30TA97 PO
[2022-07-24 07:54] VITALS: BP 118/74
[2022-07-24] MEDS ORDERED: ONDA4TAB12 PO (09:11)
[2022-07-24] MEDS ORDERED: GABA-530 PO (09:11)
[2022-07-24] MEDS ORDERED: LORA-269 PO (09:11)
--- NOTE | 2022-07-24 09:41 | NUR ---
Met with patient in regards to alcohol use and to see if patient was interested in resources for treatment options. Patient is ready to stop drinking he said. Patient [facility] and [facility] seemed to be working for a while, and then he relapsed. Patient would like medication to help him with withdrawl. I talked to patient about getting a sponsor. I gave him a list of resources. Renee gave meds to help with withdrawl and then [facility]. Patient has my card to call me with any questions.
== END 2022-07-24 10:10 | disposition home or self-care (01) ==
LOC: ER 07:37
DX: F10.10 Alcohol abuse, uncomplicated (principal); Z98.890 Other specified postprocedural states
CPT/HCPCS: 99283

== ENCOUNTER 2022-09-08 08:35 | Emergency (ER) | payer OTHER ==
[~2022-09-08] VITALS: Ht 185.4 cm; Wt 77.3 kg
[~2022-09-08 08:35] MED LIST changes: +GABA-530 PO; +LORA-269 PO; +ONDA4TAB12 PO
[2022-09-08] MEDS ORDERED: normal saline 1000ml 1,000 ML IV ONE ×2 (09:30→11:30)
[2022-09-08] MEDS ORDERED: ondansetron/PF 4mg/2ml inj IV ONE (09:30)
[2022-09-08] MEDS ORDERED: diphenhydrAMINE 50 mg/ml inj IV ONE (09:45)
[2022-09-08 10:25] LABS: BASOPHILS % (AUTO) 0.6 % (0-1); EOSINOPHILS # (AUTO) 0.1 X10'3 (0-0.9); EOSINOPHILS % (AUTO) 2.1 % (0-6); HEMATOCRIT 39.6 % (42.0-52.0); HEMOGLOBIN 13.2 g/dl (14.0-17.9); LYMPHOCYTES # (AUTO) 2.2 X10'3 (1.1-4.8); LYMPHOCYTES % (AUTO) 34.1 % (21-51); MEAN CORPUSCULAR HEMOGLOBIN 31.5 PG (27.0-31.0); MEAN CORPUSCULAR HGB CONC 33.4 g/dL (33.0-36.5); MEAN CORPUSCULAR VOLUME 94.3 FL (78-98); MEAN PLATELET VOLUME 7.5 FL (7.4-10.4); MONOCYTES # (AUTO) 0.4 X10'3 (0-0.9); MONOCYTES % (AUTO) 6.2 % (2-12); NEUTROPHILS # (AUTO) 3.6 X10'3 (1.8-7.7); PLATELET COUNT 219 X10'3 (140-440); RED CELL DISTRIBUTION WIDTH 13.5 % (11.5-14.5); WHITE BLOOD COUNT 6.3 X10'3 (4.5-11.0)
[2022-09-08 10:28] LABS: ALANINE AMINOTRANSFERASE 150 U/L (12-78); ALBUMIN/GLOBULIN RATIO 1.2 (1.1-1.5); ALKALINE PHOSPHATASE 91 IU/L (46-116); ANION GAP 11 (8-16); ASPARTATE AMINO TRANSFERASE 145 U/L (10-37); BILIRUBIN,TOTAL 0.8 MG/DL (0.1-1.0); BLOOD UREA NITROGEN 16 MG/DL (7-18); BUN/CREATININE RATIO 22.2 (10.0-20.0); CHLORIDE 108 MMOL/L (99-107); CREATININE 0.72 MG/DL (0.60-1.10); GLUCOSE 113 MG/DL (70-104); POTASSIUM 3.6 MMOL/L (3.5-5.1); SODIUM 147 MMOL/L (135-145); TOTAL CARBON DIOXIDE 28.2 MMOL/L (24-32); TOTAL PROTEIN 7.4 G/DL (6.4-8.2); eGFR > 90 ML/MIN
[2022-09-08] MEDS ORDERED: thiamine inj. 100 MG in normal saline 100ml IV soln 100 ML IV ONE (11:15)
[2022-09-08 12:52] LABS: CLARITY,URINE SLIGHTLY CLOUDY (Clear); COLOR,URINE STRAW (Yellow); GLUCOSE, URINE NEGATIVE (Neg); KETONES,URINE NEGATIVE (Neg); LEUKOCYTE ESTERASE ,URINE NEGATIVE (Neg); NITRITES, URINE NEGATIVE (Neg); OCCULT BLOOD,URINE NEGATIVE (Neg); PROTEIN,URINE NEGATIVE (Neg); UROBILINOGEN,URINE 0.2 E.U/dL (0.2-1.0)
[2022-09-08 12:53] LABS: UA COLLECTION TYPE CLN CATCH MIDSTREAM
[2022-09-08 13:03] LABS: URINE AMPHETAMINE SCREEN NEGATIVE (Neg); URINE BARBITUATE SCREEN NEGATIVE (Neg); URINE BENZODIAZEPINES SCREEN NEGATIVE (Neg); URINE CANNABINOID SCREEN NEGATIVE (Neg); URINE COCAINE SCREEN NEGATIVE (Neg); URINE METHADONE SCREEN NEGATIVE (Neg); URINE OPIATE SCREEN NEGATIVE (Neg); URINE PHENCYCLIDINE SCREEN NEGATIVE (Neg)
[2022-09-08 13:05] LABS: SQUAMOUS EPITHELIAL CELL,UR FEW /LPF (FEW)
[2022-09-08 13:06] LABS: AMORPHOUS PHOSPHATES 2+; MUCUS STRANDS MODERATE /LPF (Neg)
[2022-09-08 13:07] LABS: BACTERIA,URINE FEW /HPF (Neg); RBC,URINE 0-2 /HPF (0-2); RENAL CELLS, URINE MANY /HPF
--- NOTE | 2022-09-08 13:54 | NUR ---
PT THOUGHT HE WAS BEING DISCHARGE AND PUT HIS WET CLOTHING BACK ON AND IN THE PROCESS PULLED OUT THE PIV IN HIS RT AC. PT WAS PUT BACK TO BED AND INFORMED HE IS NOT BEING DC AT THIS TIME. PT'S RN NOTIFIED THAT THE AC PIV WAS PULLED OUT AND THAT THE PIV IN HIS RT HAND IS FUNCTIONAL
[2022-09-08] MEDS ORDERED: LORA-269 PO (13:56)
[2022-09-08 14:37] VITALS: BP 120/70
== END 2022-09-08 14:43 | disposition home or self-care (01) ==
LOC: ER 08:36
DX: F10.129 Alcohol abuse with intoxication, unspecified (principal); Y90.9 Presence of alcohol in blood, level not specified
CPT/HCPCS: 36415; 80053; 80305; 80320; 81001; 82948; 85025; 87088; 96361; 96365; 96375; 99285; J2405; J3411; J3490; J7030; A4349; A4615

== ENCOUNTER 2022-11-13 19:25 | Emergency (ER) | payer OTHER ==
[2022-11-14] MEDS ORDERED: ONDA4TAB12 PO (17:56)
[2022-11-14] MEDS ORDERED: LORA-269 PO (17:56)
[2022-11-14] MEDS ORDERED: GABA300C PO (17:56)
== END 2022-11-13 20:49 | disposition left against medical advice (07) ==
LOC: ER 19:26
DX: F10.129 Alcohol abuse with intoxication, unspecified (principal); Z53.21 Procedure and treatment not carried out due to patient leaving prior to being seen by health care provider

== ENCOUNTER 2022-11-17 01:59 | Emergency (ER) | payer OTHER ==
[~2022-11-17 01:59] MED LIST changes: +GABA300C PO
[2022-11-18] MEDS ORDERED: CHLO25CA10 PO (15:46)
== END 2022-11-17 03:39 | disposition left against medical advice (07) ==
LOC: ER 02:00
DX: F10.90 Alcohol use, unspecified, uncomplicated (principal); Z53.21 Procedure and treatment not carried out due to patient leaving prior to being seen by health care provider; Y90.9 Presence of alcohol in blood, level not specified

== ENCOUNTER 2022-11-18 11:42 | Emergency (ER) | payer OTHER ==
[~2022-11-18] VITALS: Ht 180.3 cm; Wt 79.5 kg
[2022-11-18 12:00] VITALS: TEMP 98
[2022-11-18 13:11] LABS: BASOPHILS % (AUTO) 0.6 % (0-1); HEMATOCRIT 39.5 % (42.0-52.0); WHITE BLOOD COUNT 6.3 X10'3 (4.5-11.0)
[2022-11-18 13:13] LABS: EOSINOPHILS % (AUTO) 0.8 % (0-6); HEMOGLOBIN 13.3 g/dl (14.0-17.9); LYMPHOCYTES # (AUTO) 2.2 X10'3 (1.1-4.8); MEAN CORPUSCULAR HEMOGLOBIN 31.5 PG (27.0-31.0); MEAN CORPUSCULAR HGB CONC 33.6 g/dL (33.0-36.5); MEAN CORPUSCULAR VOLUME 93.6 FL (78-98); MEAN PLATELET VOLUME 7.8 FL (7.4-10.4); MONOCYTES # (AUTO) 0.3 X10'3 (0-0.9); MONOCYTES % (AUTO) 5.2 % (2-12); NEUTROPHILS # (AUTO) 3.7 X10'3 (1.8-7.7); NEUTROPHILS % (AUTO) 58.4 % (42-75); PLATELET COUNT 196 X10'3 (140-440); RED BLOOD COUNT 4.22 X10'6 (4.70-6.10)
[2022-11-18 13:17] LABS: ALANINE AMINOTRANSFERASE 55 U/L (12-78); ALBUMIN 3.6 G/DL (3.4-5.0); ALKALINE PHOSPHATASE 129 IU/L (46-116); ANION GAP 13 (8-16); ASPARTATE AMINO TRANSFERASE 56 U/L (10-37); BILIRUBIN,TOTAL 0.4 MG/DL (0.1-1.0); BLOOD UREA NITROGEN 17 MG/DL (7-18); BUN/CREATININE RATIO 23.6 (10.0-20.0); CALCIUM 8.6 MG/DL (8.5-10.1); CHLORIDE 105 MMOL/L (99-107); CREATININE 0.72 MG/DL (0.60-1.10); GLUCOSE 114 MG/DL (70-104); POTASSIUM 3.5 MMOL/L (3.5-5.1); SODIUM 145 MMOL/L (135-145); TOTAL CARBON DIOXIDE 26.6 MMOL/L (24-32); TOTAL PROTEIN 7.1 G/DL (6.4-8.2); eCRCL 147 ML/MIN; eGFR > 90 ML/MIN
[2022-11-18 13:29] LABS: URINE AMPHETAMINE SCREEN NEGATIVE (Neg); URINE BARBITUATE SCREEN NEGATIVE (Neg); URINE BENZODIAZEPINES SCREEN NEGATIVE (Neg); URINE CANNABINOID SCREEN NEGATIVE (Neg); URINE COCAINE SCREEN NEGATIVE (Neg); URINE METHADONE SCREEN NEGATIVE (Neg); URINE OPIATE SCREEN NEGATIVE (Neg); URINE PHENCYCLIDINE SCREEN NEGATIVE (Neg)
[2022-11-18 13:40] LABS: ETHANOL 450 MG/DL (<10)
--- NOTE | 2022-11-18 13:40 | NUR ---
LAB SAID PT'S ALCOHOL LEVEL IS 450, DR ALEXANDER NOTIFIED
--- NOTE | 2022-11-18 13:57 | NUR ---
Break relief for GRINDER NEEDLE TIP. Pt in stable condition. Pt latying on gurney. RR even and unalabored. No s/s of rest distress.
[2022-11-18 14:30] VITALS: BP 109/69; PULSE 96; RESP 19; O2SAT 94
[2022-11-18] MEDS ORDERED: chlordiazePOXIDE 25mg capsule PO ONE (15:45)
[2022-11-18] MEDS ORDERED: CHLO25CA10 PO (15:46)
[2022-11-18] MEDS ORDERED: ondansetron 4mg rapidly disintigrating tab PO ONE (15:55)
== END 2022-11-18 16:42 | disposition home or self-care (01) ==
LOC: ER 11:42
DX: F10.929 Alcohol use, unspecified with intoxication, unspecified (principal); M54.9 Dorsalgia, unspecified; F31.9 Bipolar disorder, unspecified; Y90.9 Presence of alcohol in blood, level not specified
CPT/HCPCS: 36415; 80053; 80305; 80320; 85025; 93005; 99284

== ENCOUNTER 2022-11-20 12:07 | Emergency (ER) | payer OTHER ==
[~2022-11-20] VITALS: Ht 180.3 cm; Wt 79.5 kg
[2022-11-20 16:35] LABS: BASOPHILS % (AUTO) 0.3 % (0-1); EOSINOPHILS # (AUTO) 0.1 X10'3 (0-0.9); EOSINOPHILS % (AUTO) 1.4 % (0-6); HEMATOCRIT 40.7 % (42.0-52.0); HEMOGLOBIN 13.5 g/dl (14.0-17.9); LYMPHOCYTES # (AUTO) 2.2 X10'3 (1.1-4.8); LYMPHOCYTES % (AUTO) 44.5 % (21-51); MEAN CORPUSCULAR HEMOGLOBIN 31.3 PG (27.0-31.0); MEAN CORPUSCULAR HGB CONC 33.1 g/dL (33.0-36.5); MEAN CORPUSCULAR VOLUME 94.6 FL (78-98); MEAN PLATELET VOLUME 7.7 FL (7.4-10.4); MONOCYTES # (AUTO) 0.1 X10'3 (0-0.9); MONOCYTES % (AUTO) 2.6 % (2-12); NEUTROPHILS # (AUTO) 2.5 X10'3 (1.8-7.7); NEUTROPHILS % (AUTO) 51.2 % (42-75); PLATELET COUNT 182 X10'3 (140-440); RED CELL DISTRIBUTION WIDTH 13.5 % (11.5-14.5)
[2022-11-20 16:41] LABS: URINE AMPHETAMINE SCREEN NEGATIVE (Neg); URINE BARBITUATE SCREEN NEGATIVE (Neg); URINE BENZODIAZEPINES SCREEN NEGATIVE (Neg); URINE CANNABINOID SCREEN NEGATIVE (Neg); URINE COCAINE SCREEN NEGATIVE (Neg); URINE METHADONE SCREEN NEGATIVE (Neg); URINE OPIATE SCREEN NEGATIVE (Neg); URINE PHENCYCLIDINE SCREEN NEGATIVE (Neg)
[2022-11-20 16:48] LABS: ALANINE AMINOTRANSFERASE 56 U/L (12-78); ALBUMIN 3.6 G/DL (3.4-5.0); ALKALINE PHOSPHATASE 89 IU/L (46-116); ANION GAP 11 (8-16); ASPARTATE AMINO TRANSFERASE 51 U/L (10-37); BILIRUBIN,TOTAL 0.7 MG/DL (0.1-1.0); BLOOD UREA NITROGEN 18 MG/DL (7-18); CALCIUM 8.1 MG/DL (8.5-10.1); CHLORIDE 108 MMOL/L (99-107); CREATININE 0.72 MG/DL (0.60-1.10); GLUCOSE 70 MG/DL (70-104); SODIUM 145 MMOL/L (135-145); TOTAL CARBON DIOXIDE 26.1 MMOL/L (24-32); TOTAL PROTEIN 7.3 G/DL (6.4-8.2); eCRCL 147 ML/MIN; eGFR > 90 ML/MIN
[2022-11-20 16:56] LABS: ETHANOL 359 MG/DL (<10)
--- NOTE | 2022-11-20 21:37 | NUR ---
pt arrived to over flow about 2100 via WC. pt seems cooperative and pleasant during introduction. pt currently eating snack and drinking liquids on side of bed. pt states "i only have these thoughts when im drunk, once i come to they go away".
[2022-11-20] MEDS ORDERED: OMEP40CA21 PO (22:21)
[2022-11-20] MEDS ORDERED: MELA3TAB39 PO (22:21)
--- NOTE | 2022-11-20 22:54 | NUR ---
records sent to [facility]
--- NOTE | 2022-11-20 23:46 | NUR ---
PT REMAINS IN BED WITH EYES CLOSED. NON LABORED BREATHING. NO OBVIOUS SIGNS OF DISTRESS.
[2022-11-21] MEDS ORDERED: proCHLORperazine 10mg tablet PO ONE (00:30)
[2022-11-21] MEDS ORDERED: diphenhydrAMINE 25mg capsule PO ONE ×2 (00:30→04:25)
[2022-11-21] MEDS ORDERED: ondansetron 4mg rapidly disintigrating tab PO ONE (00:30)
--- NOTE | 2022-11-21 00:50 | NUR ---
PATIENT LYING PRONE POSITION. PT STATES HE IS WITHDRAWLING FROM ALCOHOL. PT REQUESTING FOR "SOMETHING FOR NAUSEA AND SOMETHING FOR ANXIETY". MD NOTIFIED. MD ORDERED ONE TIME DOSE OF BENADRYL 50 MG, COMPAZINE 10 MG, AND ZOFRAN 4 MG. PATIENT ADMINISTERED MEDS AND RETURNED TO BED.
--- NOTE | 2022-11-21 02:37 | NUR ---
Taylor richardson in [facility] - 11/21/22 at 0302 by [email or web address] PT
--- NOTE | 2022-11-21 03:02 | NUR ---
PT LYING ON RIGHT SIDE WITH EYES CLOSED. PATIENT HAS TOSSED AND TURN MAJORITY OF NIGHT. NO OBVIOUS SIGNS OF DISTRESS TO NOTE.
[2022-11-21] MEDS ORDERED: chlordiazePOXIDE 25mg capsule PO ONE (04:25)
[2022-11-21] MEDS ORDERED: ibuprofen tablet 400 MG TABLET PO ONE (04:25)
--- NOTE | 2022-11-21 04:26 | NUR ---
Pts I/V pulled out and had to be removed.
--- NOTE | 2022-11-21 05:26 | NUR ---
PT ADMINISTERED MEDS FOR WITHDRAWLORDERED BY .
--- NOTE | 2022-11-21 05:27 | NUR ---
PT CONTINUES TO SLEEP WITH NO OBVIOUS SIGNS OF DISTRESS. WILL CONTINUE TO MONITOR.
--- NOTE | 2022-11-21 07:11 | NUR ---
Nurse received report from [facility] nurse. Pt asleep at change of shift with noted rise and fall of chest. No acute distress noted. Pt VS reviewed, pt had an elevated blood pressure (158/105) and pulse (95) on NOC shift. Pt labs reviewed with a noted elevated ethyl alcohol level (359). [facility] nurse reported MD is aware of pt. condition and is not concerned at this time regarding alcohol withdrawls. Nurse will re-assess VS once pt. wakes up.
[2022-11-21] MEDS ORDERED: pantoprazole 40mg Tablet.DR PO SCH (07:30)
[2022-11-21] MEDS ORDERED: buPROPion SR 150mg tablet PO SCH (08:00)
[2022-11-21] MEDS ORDERED: PARoxetine 30mg tablet PO SCH (08:00)
[2022-11-21] MEDS ORDERED: gabapentin 300mg capsule PO SCH (08:00)
[2022-11-21 09:00] VITALS: BP 135/98; PULSE 76; RESP 16; TEMP 98.2; O2SAT 99
--- NOTE | 2022-11-21 09:00 | NUR ---
Pt eating breakfast at bedside. No acute distress noted.
--- NOTE | 2022-11-21 09:46 | NUR ---
1:1 done, pt declining SI. Pt states he has a long history of alcohol abuse and called the veterans hotline yesterday when he was intoxicated telling them he was suicidal. Pt states he was actually not suicidal and it was more of a call for help because he cant stop drinking.
--- NOTE | 2022-11-21 10:33 | NUR ---
Pt being evaluated by SCM.
--- NOTE | 2022-11-21 12:38 | NUR ---
Pt. hold has been released per [facility]. Pt to discharge home. Pt does not have his wallet money to buy a cab and does not have a bus station near his home. A cab will be provided for him, the wait is approx. 1 hour.
--- NOTE | 2022-11-21 13:59 | NUR ---
1320 Printed dc instructions reviewed with pt prior to discharge. All questions and concerns addressed to his verbal satisfaction. Pt denied SI/HI at time of exit. Pt escorted out of unit steady gait with security officers x2. All personal belongings accounted for with pt's verbal acknowledgement of all items/medications returned. Pt presented calm and stable upon exit.
[2022-11-21] MEDS ORDERED: Melatonin 3mg tablet PO SCH (21:00)
== END 2022-11-21 13:27 | disposition home or self-care (01) ==
LOC: ER 12:07
DX: F10.129 Alcohol abuse with intoxication, unspecified (principal); Z20.822 Contact with and (suspected) exposure to COVID-19; Z79.899 Other long term (current) drug therapy; Y90.9 Presence of alcohol in blood, level not specified
CPT/HCPCS: 36415; 80053; 80305; 80320; 85025; 87811; 99285; Q0163; Q0164

== ENCOUNTER 2023-05-11 18:39 | Emergency (ER) | payer OTHER ==
[~2023-05-11] VITALS: Ht 180.3 cm; Wt 85.9 kg
[~2023-05-11 18:39] MED LIST changes: -CHLO25CA10 PO; -GABA-530 PO; -GABA300C PO; -LORA-269 PO; +MELA3TAB39 PO; -MULT-25 PO; +OMEP40CA21 PO; -ONDA4TAB12 PO
[2023-05-11 18:53] VITALS: BP 131/86; PULSE 66; RESP 16; TEMP 99; O2SAT 95
== END 2023-05-11 20:04 | disposition home or self-care (01) ==
LOC: ER 18:40
DX: S46.812A Strain of other muscles, fascia and tendons at shoulder and upper arm level, left arm, initial encounter (principal); F41.9 Anxiety disorder, unspecified; F32.A Depression, unspecified; F10.10 Alcohol abuse, uncomplicated; Z56.0 Unemployment, unspecified; X50.1XXA Overexertion from prolonged static or awkward postures, initial encounter; Y93.89 Activity, other specified; Y92.89 Other specified places as the place of occurrence of the external cause; Y99.8 Other external cause status; Z90.89 Acquired absence of other organs; Y90.9 Presence of alcohol in blood, level not specified
CPT/HCPCS: 29105; 73030; 99284; A4565

== ENCOUNTER 2023-08-29 23:29 | Emergency (ER) | payer OTHER ==
[~2023-08-29] VITALS: Ht 180.3 cm; Wt 84.6 kg
[2023-08-29] MEDS ORDERED: CHLO25CA10 PO (23:56)
[2023-08-30 00:16] VITALS: BP 110/60; PULSE 83; RESP 18; TEMP 98; O2SAT 97
== END 2023-08-30 00:24 | disposition home or self-care (01) ==
LOC: ER 23:30
DX: F10.129 Alcohol abuse with intoxication, unspecified (principal); F41.9 Anxiety disorder, unspecified; F32.A Depression, unspecified
CPT/HCPCS: 99283